=== PATIENT | female | born 1985 | race Two or more races ===

== ENCOUNTER 2022-05-04 19:36 | Emergency (ER) | payer MEDICAID, OTHER ==
[~2022-05-04] VITALS: Ht 152.4 cm; Wt 94.4 kg
[2022-05-04 19:36] VITALS: BP 132/81
== END 2022-05-04 23:00 | disposition left against medical advice (07) ==
LOC: ER 19:45
DX: H57.89 Other specified disorders of eye and adnexa (principal); Z53.21 Procedure and treatment not carried out due to patient leaving prior to being seen by health care provider